=== PATIENT | female | born 1970 | race African-American/Black ===

== ENCOUNTER 2021-08-29 05:34 | Emergency (ER) | payer OTHER ==
[~2021-08-29] VITALS: Ht 170.2 cm; Wt 90.0 kg
[2021-08-29] MEDS ORDERED: ONDANSETRON HCL 4MG/2ML INJ IV STA (06:03)
[2021-08-29] MEDS ORDERED: KETOROLAC 30MG/ML VIAL IV STA (06:03)
[2021-08-29] MEDS ORDERED: SODIUM CHLORIDE 0.9% 1,000 ML IV ONE (06:15)
[2021-08-29 06:25] LABS: BASOPHILS % 1.4 % (0.0-2.0); EOSINOPHILS % 0.9 % (0.0-5.0); HEMATOCRIT. 43.9 % (36.0-48.0); LYMPHOCYTES % 18.9 % (20.0-50.0); MEAN CORPUSCULAR HEMOGLOBIN 23.3 pg (28.0-32.0); MEAN CORPUSCULAR VOLUME 73.2 fL (81.0-99.0); NEUTROPHILS % 71.8 % (40.0-76.0); PLATELET 328 x1000/uL (130-400); RED BLOOD CELL COUNT 5.99 mill/uL (4.2-5.4); RED CELL DISTRIBUTION WIDTH 15.2 % (11.6-14.6)
[2021-08-29 06:29] LABS: CHLORIDE 103 mEq/L (98-107)
[2021-08-29 06:45] LABS: HCG SCREEN NEGATIVE
[2021-08-29 06:45] LABS: CLARITY URINE CLOUDY (CLEAR); COLOR URINE DK YELLOW (YELLOW); KETONES URINE TRACE (NEGATIVE); LEUKOCYTE ESTERASE URINE TRACE (NEGATIVE); NITRITE URINE NEGATIVE (NEGATIVE); OCCULT BLOOD URINE NEGATIVE (NEGATIVE); PH URINE 5.5 (4.5-8.0); PROTEIN URINE 2+ (NEGATIVE); SPECIFIC GRAVITY URINE 1.026 (1.005-1.030)
[2021-08-29] MEDS ORDERED: IBUP-2029 MT (08:06)
[2021-08-29] MEDS ORDERED: AMOX-424 MT (08:06)
[2021-08-29] MEDS ORDERED: ONDA4TAB5 MT (08:06)
[2021-08-29 09:45] VITALS: BP 135/62
== END 2021-08-29 10:03 | disposition home or self-care (01) ==
LOC: ER 05:34
DX: N12 Tubulo-interstitial nephritis, not specified as acute or chronic (principal); I25.2 Old myocardial infarction; I10 Essential (primary) hypertension; Z95.5 Presence of coronary angioplasty implant and graft
CPT/HCPCS: 36415; 71045; 80053; 81003; 84484; 84703; 85025; 87086; 93005; 96361; 96374; 96375; 99285; J1885; J2405; J7030

== ENCOUNTER 2022-11-18 09:16 | Emergency (ER) | payer OTHER ==
[~2022-11-18] VITALS: Ht 167.6 cm; Wt 77.3 kg
[~2022-11-18 09:16] MED LIST: AMOX-424 MT; IBUP-2029 MT; ONDA4TAB5 MT
[2022-11-18] MEDS ORDERED: IBUPROFEN 600MG TABLET PO ONE (09:30)
[2022-11-18] MEDS ORDERED: IBUP-2029 MT (09:55)
[2022-11-18 10:10] VITALS: BP 146/65
== END 2022-11-18 10:14 | disposition home or self-care (01) ==
LOC: ER 09:16
DX: S80.02XA Contusion of left knee, initial encounter (principal); S93.402A Sprain of unspecified ligament of left ankle, initial encounter; W18.30XA Fall on same level, unspecified, initial encounter; Y93.89 Activity, other specified; Y92.89 Other specified places as the place of occurrence of the external cause; Y99.8 Other external cause status
CPT/HCPCS: 73560; 73610; 99284

== ENCOUNTER 2023-07-02 01:15 | Emergency (ER) | payer SELFPAY ==
[~2023-07-02] VITALS: Ht 170.2 cm; Wt 80.0 kg
[2023-07-02 01:27] VITALS: BP 162/92; PULSE 70; RESP 16; TEMP 98.6; O2SAT 100
[2023-07-02 03:39] LABS: BASOPHILS % 1.7 % (0.0-2.0); DIFFERENTIAL COMMENT 0; EOSINOPHILS % 1.5 % (0.0-5.0); HEMATOCRIT. 39.6 % (36.0-48.0); HEMOGLOBIN. 12.4 g/dL (12.0-16.0); LYMPHOCYTES % 35.9 % (20.0-50.0); MEAN CORPUSCULAR HEMOGLOBIN 23.3 pg (28.0-32.0); MEAN CORPUSCULAR HGB CONC 31.2 g/dL (31.0-37.0); MEAN CORPUSCULAR VOLUME 74.7 fL (81.0-99.0); MEAN PLATELET VOLUME 8.1 fl (7.4-10.4); MONOCYTES % 7.8 % (2.0-8.0); NEUTROPHILS % 53.1 % (40.0-76.0); PLATELET 267 x1000/uL (130-400); RED CELL DISTRIBUTION WIDTH 15.7 % (11.6-14.6); WHITE BLOOD COUNT 7.1 x1000/uL (4.5-11.0)
[2023-07-02 03:53] LABS: ALANINE AMINOTRANSFERASE 7 IU/L (10-49); ALBUMIN 4.4 g/dL (3.2-4.8); ASPARTATE AMINOTRANSFERASE 15 IU/L (<34); BILIRUBIN TOTAL 0.4 mg/dL (0.1-1.0); CALCIUM 9.7 mg/dL (8.7-10.4); CARBON DIOXIDE 29 mEq/L (21-32); CHLORIDE 108 mEq/L (98-107); GLUCOSE 89 mg/dL (70-105); PROTEIN TOTAL 7.2 g/dL (6.0-8.3); SODIUM 143 mEq/L (136-145); UREA NITROGEN BLOOD 14 mg/dL (9-23)
[2023-07-02 05:38] LABS: CLARITY URINE CLEAR (CLEAR); COLOR URINE YELLOW (YELLOW)
[2023-07-02 05:39] LABS: PH URINE 6.5 (4.5-8.0); SPECIFIC GRAVITY URINE 1.018 (1.005-1.030)
[2023-07-02 05:40] LABS: GLUCOSE URINE NEGATIVE (NEGATIVE); KETONES URINE NEGATIVE (NEGATIVE); LEUKOCYTE ESTERASE URINE NEGATIVE (NEGATIVE); NITRITE URINE NEGATIVE (NEGATIVE); OCCULT BLOOD URINE NEGATIVE (NEGATIVE); PROTEIN URINE NEGATIVE (NEGATIVE)
[2023-07-02] MEDS ORDERED: IBUP-2029 MT (07:01)
[2023-07-02] MEDS ORDERED: AMOX1TAB16 MT (07:01)
== END 2023-07-02 07:49 | disposition home or self-care (01) ==
LOC: ER 01:15
DX: N39.0 Urinary tract infection, site not specified (principal); I11.9 Hypertensive heart disease without heart failure; I25.2 Old myocardial infarction; Z98.890 Other specified postprocedural states
CPT/HCPCS: 36415; 76700; 80053; 81003; 85025; 99284

== ENCOUNTER 2024-03-14 15:11 | Inpatient (IN) | payer SELFPAY ==
[~2024-03-14] VITALS: Ht 170.2 cm; Wt 85.0 kg
[~2024-03-14 15:11] MED LIST changes: +AMOX1TAB16 MT
[2024-03-14 15:58] LABS: BASOPHILS % 1.8 % (0.0-2.0); DIFFERENTIAL COMMENT 0; EOSINOPHILS % 0.7 % (0.0-5.0); HEMATOCRIT. 39.7 % (36.0-48.0); HEMOGLOBIN. 12.5 g/dL (12.0-16.0); LYMPHOCYTES % 22.8 % (20.0-50.0); MEAN CORPUSCULAR HEMOGLOBIN 23.2 pg (28.0-32.0); MEAN CORPUSCULAR HGB CONC 31.4 g/dL (31.0-37.0); MONOCYTES % 8.4 % (2.0-8.0); NEUTROPHILS % 66.3 % (40.0-76.0); PLATELET 271 x1000/uL (130-400); RED BLOOD CELL COUNT 5.36 mill/uL (4.2-5.4); RED CELL DISTRIBUTION WIDTH 15.5 % (11.6-14.6); WHITE BLOOD COUNT 5.8 x1000/uL (4.5-11.0)
[2024-03-14 16:05] LABS: CHLORIDE 109 mEq/L (98-107); SODIUM 140 mEq/L (136-145)
[2024-03-14 16:06] LABS: CALCIUM 9.4 mg/dL (8.7-10.4); CARBON DIOXIDE 31 mEq/L (21-32)
[2024-03-14 16:11] LABS: CREATININE 1.2 mg/dL (0.6-1.0); GLUCOSE 83 mg/dL (70-105); UREA NITROGEN BLOOD 16 mg/dL (9-23)
[2024-03-14 16:13] LABS: TROPONIN I HIGH SENSITIVITY 5 ng/L (3.0-34)
[2024-03-14 17:54] LABS: CLARITY URINE CLEAR (CLEAR); COLOR URINE YELLOW (YELLOW); GLUCOSE URINE NEGATIVE (NEGATIVE); KETONES URINE NEGATIVE (NEGATIVE); LEUKOCYTE ESTERASE URINE TRACE (NEGATIVE); NITRITE URINE NEGATIVE (NEGATIVE); OCCULT BLOOD URINE NEGATIVE (NEGATIVE); PH URINE 5.5 (4.5-8.0); PROTEIN URINE TRACE (NEGATIVE); SPECIFIC GRAVITY URINE 1.025 (1.005-1.030)
[2024-03-14 18:11] LABS: BACTERIA URINE 1+
[2024-03-14 18:12] LABS: RBC URINE 0-2 /hpf (0-2); SQUAMOUS EPITHELIAL CELL URINE FEW /lpf (RARE/1+)
[2024-03-14] MEDS: ASPIRIN 81MG TABLET PO ONE (18:29)
[2024-03-14 20:14] LABS: TROPONIN I HIGH SENSITIVITY 8 ng/L (3.0-34)
[2024-03-14] MEDS ORDERED: IPRATROPIUM/ALBUTEROL 0.5-3(2.5)MG/3ML NEB HHN PRN (20:30)
[2024-03-14] MEDS ORDERED: DOCUSATE SODIUM 100MG CAPSULE PO PRN (20:30)
[2024-03-14] MEDS ORDERED: ONDANSETRON HCL 4MG/2ML INJ IV PRN (20:30)
[2024-03-14] MEDS ORDERED: ACETAMINOPHEN 650MG/20.3ML UDC GT PRN (20:30)
[2024-03-14] MEDS ORDERED: DIPHENHYDRAMINE 50MG/ML VIAL IV PRN (20:30)
[2024-03-14] MEDS: AMLODIPINE 5MG TABLET PO SCH (20:54)
[2024-03-14] MEDS: SODIUM CHLORIDE 0.45% 1,000 ML IV ONE (20:54)
[2024-03-14] MEDS: ENOXAPARIN 40MG/0.4ML SYR SUBCUT SCH (21:00)
[2024-03-14 21:21] LABS: D-DIMER 0.27 mg/L FEU (<0.50); INR 0.9; PROTHROMBIN TIME 10.3 sec (9.6-11.0)
[2024-03-14 21:24] LABS: IRON 53 ug/dL (50-170)
[2024-03-14 21:25] LABS: ALANINE AMINOTRANSFERASE 9 IU/L (10-49); ALBUMIN 4.3 g/dL (3.2-4.8); ASPARTATE AMINOTRANSFERASE 14 IU/L (<34); CHOLESTEROL 234 mg/dL (<200); TRIGLYCERIDE 103 mg/dL (0-150)
[2024-03-14 21:26] LABS: BILIRUBIN DIRECT 0.1 mg/dL (<=3.0); HDL CHOLESTEROL 51 mg/dL (>65); LDL CHOLESTEROL 187 mg/dL (5-100); TOTAL IRON BINDING CAPACITY 283 ug/dl (250-425)
[2024-03-14 21:27] LABS: BILIRUBIN TOTAL 0.4 mg/dL (0.1-1.0); ETHANOL BLOOD < 10 mg/dL (<10); PHOSPHORUS 2.5 mg/dL (2.5-4.9); PROTEIN TOTAL 7.3 g/dL (6.0-8.3)
[2024-03-14 21:28] LABS: T4 FREE 1.11 ng/dL (0.89-1.76); THYROID STIMULATING HORMONE 0.84 uIU/mL (0.55-4.78)
[2024-03-14] MEDS ORDERED: ALBUTEROL 6.7GM HFA INHALER ORI PRN (21:30)
[2024-03-14] MEDS ORDERED: ALBUTEROL (0.083%) 2.5MG/3ML NEB HHN PRN ×2 (21:45)
[2024-03-14] MEDS ORDERED: NITROGLYCERIN 0.4MG TABLET SL SL PRN (22:00)
[2024-03-14] MEDS: CLONIDINE 0.1MG TABLET PO PRN (22:02)
[2024-03-14] MEDS: NICOTINE 7MG PATCH TD SCH (22:20)
[2024-03-14 23:07] VITALS: BP 180/93; PULSE 55; RESP 19; TEMP 35.7508
[2024-03-14 23:51] LABS: TROPONIN I HIGH SENSITIVITY 9 ng/L (3.0-34)
[2024-03-14 23:53] LABS: CREATINE KINASE 70 IU/L (34-145)
[2024-03-15] VITALS: BP 138/62; PULSE 52; RESP 19; TEMP 36.05844; O2SAT 100
[2024-03-15 04:00] VITALS: BP 168/72; PULSE 56; RESP 18; TEMP 36.28068; O2SAT 97
[2024-03-15 06:51] LABS: CHLORIDE 108 mEq/L (98-107); POTASSIUM 3.7 mEq/L (3.5-5.1); SODIUM 140 mEq/L (136-145)
[2024-03-15 06:52] LABS: CARBON DIOXIDE 28 mEq/L (21-32)
[2024-03-15 06:53] LABS: CALCIUM 9.9 mg/dL (8.7-10.4)
[2024-03-15 06:57] LABS: CREATININE 0.9 mg/dL (0.6-1.0); GLUCOSE 86 mg/dL (70-105)
[2024-03-15 06:58] LABS: UREA NITROGEN BLOOD 12 mg/dL (9-23)
[2024-03-15 06:59] LABS: TROPONIN I HIGH SENSITIVITY 9 ng/L (3.0-34)
[2024-03-15 07:00] LABS: PHOSPHORUS 2.3 mg/dL (2.5-4.9)
[2024-03-15 07:01] LABS: BASOPHILS % 1.1 % (0.0-2.0); DIFFERENTIAL COMMENT 0; EOSINOPHILS % 2.8 % (0.0-5.0); HEMATOCRIT. 39.1 % (36.0-48.0); HEMOGLOBIN. 12.2 g/dL (12.0-16.0); LYMPHOCYTES % 40.9 % (20.0-50.0); MEAN CORPUSCULAR HEMOGLOBIN 23.2 pg (28.0-32.0); MEAN CORPUSCULAR HGB CONC 31.1 g/dL (31.0-37.0); MEAN CORPUSCULAR VOLUME 74.7 fL (81.0-99.0); MEAN PLATELET VOLUME 8.5 fl (7.4-10.4); MONOCYTES % 8.4 % (2.0-8.0); NEUTROPHILS % 46.8 % (40.0-76.0); PLATELET 237 x1000/uL (130-400); RED BLOOD CELL COUNT 5.24 mill/uL (4.2-5.4); RED CELL DISTRIBUTION WIDTH 15.6 % (11.6-14.6); WHITE BLOOD COUNT 5.9 x1000/uL (4.5-11.0)
[2024-03-15 07:02] LABS: CREATINE KINASE 73 IU/L (34-145)
[2024-03-15 08:00] VITALS: BP 175/86; PULSE 54; RESP 20; TEMP 36.28068; O2SAT 100
[2024-03-15] MEDS: LISINOPRIL 10MG TABLET PO SCH (08:18)
[2024-03-15] MEDS: ASPIRIN 81MG EC TABLET PO SCH (08:18)
[2024-03-15 12:00] VITALS: BP 128/65; PULSE 50; RESP 18; TEMP 36.33624; O2SAT 100
[2024-03-15] MEDS: ISOSORBIDE MONONITRATE 30MG TABLET SR 24HR PO SCH (12:06)
[2024-03-15] MEDS: ATENOLOL 50 MG TABLET PO SCH (14:30)
[2024-03-15] MEDS: POTASSIUM-SODIUM PHOSPHATE POWDER PACKET PO NR (15:23)
[2024-03-15 16:00] VITALS: BP 116/65; PULSE 55; RESP 18; TEMP 36.22512; O2SAT 100
[2024-03-15 20:00] VITALS: BP 132/75; PULSE 60; RESP 20; TEMP 36.16956; O2SAT 99
[2024-03-15] MEDS: ATORVASTATIN CALCIUM 40MG TABLET PO SCH (20:23)
[2024-03-15] MEDS ORDERED: ATORVASTATIN CALCIUM 40MG TABLET PO SCH (21:00)
[2024-03-16] VITALS (7 sets, daily range): BP systolic 121–181; BP diastolic 71–87; PULSE 52–92; RESP 18–20; TEMP 36.114–36.28068; O2SAT 96–100
[2024-03-16 06:09] LABS: BASOPHILS % 0.9 % (0.0-2.0); DIFFERENTIAL COMMENT 0; EOSINOPHILS % 2.6 % (0.0-5.0); HEMATOCRIT. 36.7 % (36.0-48.0); HEMOGLOBIN. 11.4 g/dL (12.0-16.0); LYMPHOCYTES % 29.8 % (20.0-50.0); MEAN CORPUSCULAR HEMOGLOBIN 23.1 pg (28.0-32.0); MEAN CORPUSCULAR HGB CONC 31.1 g/dL (31.0-37.0); MEAN CORPUSCULAR VOLUME 74.2 fL (81.0-99.0); MEAN PLATELET VOLUME 8.2 fl (7.4-10.4); MONOCYTES % 9.9 % (2.0-8.0); NEUTROPHILS % 56.8 % (40.0-76.0); PLATELET 244 x1000/uL (130-400); RED BLOOD CELL COUNT 4.95 mill/uL (4.2-5.4); RED CELL DISTRIBUTION WIDTH 15.2 % (11.6-14.6); WHITE BLOOD COUNT 6.2 x1000/uL (4.5-11.0)
[2024-03-16 06:42] LABS: CARBON DIOXIDE 28 mEq/L (21-32); CHLORIDE 108 mEq/L (98-107); POTASSIUM 3.7 mEq/L (3.5-5.1); SODIUM 140 mEq/L (136-145)
[2024-03-16 06:43] LABS: CALCIUM 9.3 mg/dL (8.7-10.4)
[2024-03-16 06:48] LABS: CREATININE 1.1 mg/dL (0.6-1.0); GLUCOSE 82 mg/dL (70-105); UREA NITROGEN BLOOD 19 mg/dL (9-23)
[2024-03-16 06:50] LABS: PHOSPHORUS 2.9 mg/dL (2.5-4.9)
[2024-03-16] MEDS ORDERED: REGADENOSON 0.4 MG/5 ML IV SCH (08:45)
[2024-03-17] VITALS: BP 154/85; PULSE 62; RESP 18; TEMP 36.16956; O2SAT 98
[2024-03-17 04:00] VITALS: BP 179/104; PULSE 77; RESP 19; TEMP 36.05844; O2SAT 99
[2024-03-17 08:00] VITALS: BP 100/58; PULSE 88; RESP 17; TEMP 36.44736; O2SAT 100
[2024-03-17 08:06] LABS: CHLORIDE 108 mEq/L (98-107); POTASSIUM 3.6 mEq/L (3.5-5.1); SODIUM 138 mEq/L (136-145)
[2024-03-17 08:07] LABS: CALCIUM 9.3 mg/dL (8.7-10.4); CARBON DIOXIDE 26 mEq/L (21-32)
[2024-03-17 08:11] LABS: HEMATOCRIT 37.2 % (36.0-48.0); HEMOGLOBIN 11.7 g/dL (12.0-16.0); MEAN CORPUSCULAR HEMOGLOBIN 23.3 pg (28.0-32.0); MEAN CORPUSCULAR HGB CONC 31.5 g/dL (31.0-37.0); MEAN CORPUSCULAR VOLUME 74.1 fL (81.0-99.0); PLATELET 252 x1000/uL (130-400); RED BLOOD CELL COUNT 5.01 mill/uL (4.2-5.4); RED CELL DISTRIBUTION WIDTH 15.5 % (11.6-14.6); WHITE BLOOD COUNT 5.9 x1000/uL (4.5-11.0)
[2024-03-17 08:12] LABS: CREATININE 0.9 mg/dL (0.6-1.0); GLUCOSE 92 mg/dL (70-105); UREA NITROGEN BLOOD 15 mg/dL (9-23)
[2024-03-17 12:00] VITALS: BP 130/63; PULSE 64; RESP 17; TEMP 36.28068; O2SAT 100
[2024-03-17 14:58] LABS: *AMPHETAMINES SCREEN URINE NEGATIVE (NEGATIVE); *BARBITURATES SCREEN URINE NEGATIVE (NEGATIVE); *BENZODIAZEPINES SCREEN URINE NEGATIVE (NEGATIVE); *COCAINE SCREEN URINE NEGATIVE (NEGATIVE); CANNABINOID URINE SCREEN PRESUMPTIVE POSITIVE (NEGATIVE); ECSTASY MDMA SCREEN URINE NEGATIVE (NEGATIVE); METHADONE URINE SCREEN NEGATIVE (NEGATIVE); OPIATES URINE SCREEN NEGATIVE (NEGATIVE); PHENCYCLIDINE URINE SCREEN NEGATIVE (NEGATIVE)
[2024-03-17 18:23] VITALS: BP 132/77; PULSE 75; RESP 18; TEMP 36.72516; O2SAT 100
[2024-03-17] MEDS: SODIUM CHLORIDE 0.45% 1,000 ML IV SCH (18:46)
[2024-03-17 20:00] VITALS: BP 155/72; PULSE 67; RESP 18; TEMP 36.50292; O2SAT 100
[2024-03-18] VITALS: BP 155/93; PULSE 81; RESP 19; TEMP 36.28068; O2SAT 99
[2024-03-18 04:00] VITALS: BP 133/87; PULSE 80; RESP 18; TEMP 36.50292; O2SAT 100
[2024-03-18 08:00] VITALS: BP 151/94; PULSE 63; RESP 18; TEMP 36.3918; O2SAT 99
[2024-03-18 12:00] VITALS: BP 114/52; PULSE 70; RESP 16; TEMP 36.55848; O2SAT 99
[2024-03-18 16:00] VITALS: BP 121/71; PULSE 62; RESP 18; TEMP 36.50292; O2SAT 96
[2024-03-18 20:00] VITALS: BP 132/72; PULSE 84; RESP 19; TEMP 36.89184; O2SAT 99
[2024-03-19] VITALS: BP 132/72; PULSE 84; RESP 19; TEMP 36.55848; O2SAT 99
[2024-03-19 04:00] VITALS: BP_SYST 143; BP_SYST 169; BP_DIAS 80; BP_DIAS 92; PULSE 71; PULSE 73; RESP 18; TEMP 36.78072; TEMP 36.89184; O2SAT 98; O2SAT 99
[2024-03-19 07:45] LABS: BASOPHILS % 0.9 % (0.0-2.0); DIFFERENTIAL COMMENT 0; EOSINOPHILS % 1.7 % (0.0-5.0); HEMATOCRIT. 40.2 % (36.0-48.0); HEMOGLOBIN. 12.4 g/dL (12.0-16.0); INR 0.9; LYMPHOCYTES % 32.8 % (20.0-50.0); MEAN CORPUSCULAR HGB CONC 30.8 g/dL (31.0-37.0); MEAN CORPUSCULAR VOLUME 74.8 fL (81.0-99.0); MEAN PLATELET VOLUME 8.5 fl (7.4-10.4); MONOCYTES % 10.5 % (2.0-8.0); NEUTROPHILS % 54.1 % (40.0-76.0); PLATELET 275 x1000/uL (130-400); PROTHROMBIN TIME 10.3 sec (9.6-11.0); RED BLOOD CELL COUNT 5.38 mill/uL (4.2-5.4); RED CELL DISTRIBUTION WIDTH 15.7 % (11.6-14.6); WHITE BLOOD COUNT 5.6 x1000/uL (4.5-11.0)
[2024-03-19 07:47] LABS: CHLORIDE 107 mEq/L (98-107); POTASSIUM 3.8 mEq/L (3.5-5.1); SODIUM 139 mEq/L (136-145)
[2024-03-19 07:48] LABS: CALCIUM 9.6 mg/dL (8.7-10.4); CARBON DIOXIDE 27 mEq/L (21-32)
[2024-03-19 07:53] LABS: GLUCOSE 76 mg/dL (70-105)
[2024-03-19 07:54] LABS: UREA NITROGEN BLOOD 17 mg/dL (9-23)
[2024-03-19 07:56] LABS: PHOSPHORUS 2.4 mg/dL (2.5-4.9)
[2024-03-19 08:00] VITALS: BP 164/95; PULSE 76; RESP 15; TEMP 36.114; O2SAT 100
[2024-03-19] MEDS ORDERED: LIDOCAINE HCL 1% 10 MG/ML 10ML VIAL ONE (11:46)
[2024-03-19] MEDS ORDERED: DIPHENHYDRAMINE 50MG/ML VIAL ONE (11:46)
[2024-03-19] MEDS ORDERED: HEPARIN 1000 UNITS/ML 10ML ONE (11:46)
[2024-03-19] MEDS ORDERED: VERAPAMIL HCL 2.5 MG/1 ML 2ML VIAL IV ONE (11:46)
[2024-03-19] MEDS ORDERED: IODIXANOL 320MG/ML 100 ML BOTTLE IV ONE ×2 (11:46→13:36)
[2024-03-19 12:00] VITALS: BP 150/91; PULSE 82; RESP 16; TEMP 36.3918; O2SAT 96
[2024-03-19] MEDS ORDERED: FENTANYL CITRATE/PF 50MCG/ML 2ML VIAL ONE (12:32)
[2024-03-19] MEDS ORDERED: MIDAZOLAM HCL 2 MG/2 ML VIAL ONE (12:32)
[2024-03-19] MEDS ORDERED: ATROPINE SULFATE 1MG/10ML SYR IV PRN (14:30)
[2024-03-19] MEDS ORDERED: ACETAMINOPHEN 325MG TABLET PO PRN (14:30)
[2024-03-19] MEDS: SODIUM CHLORIDE 0.45% 250 ML IV ONE (14:30)
[2024-03-19 16:00] VITALS: BP 159/89; PULSE 60; RESP 13; TEMP 36.78072; O2SAT 100
[2024-03-19 20:14] LABS: PHOSPHORUS 2.6 mg/dL (2.5-4.9)
[2024-03-19 20:37] VITALS: BP 150/88; PULSE 64; RESP 18; TEMP 36.61404; O2SAT 100
[2024-03-19] MEDS: SODIUM PHOSPHATE 15 MMOL in DEXT 5% WATER 245 ML IV NR (21:44)
[2024-03-20 00:22] VITALS: BP 133/77; PULSE 66; RESP 18; TEMP 36.55848; O2SAT 100
[2024-03-20 04:00] VITALS: BP 148/81; PULSE 63; RESP 18; TEMP 36.89184; O2SAT 99
[2024-03-20 06:36] LABS: BASOPHILS % 1.2 % (0.0-2.0); DIFFERENTIAL COMMENT 0; EOSINOPHILS % 2.3 % (0.0-5.0); HEMATOCRIT. 39.3 % (36.0-48.0); HEMOGLOBIN. 12.1 g/dL (12.0-16.0); LYMPHOCYTES % 31.8 % (20.0-50.0); MEAN CORPUSCULAR HGB CONC 30.9 g/dL (31.0-37.0); MEAN CORPUSCULAR VOLUME 74.3 fL (81.0-99.0); MEAN PLATELET VOLUME 8.1 fl (7.4-10.4); MONOCYTES % 11.5 % (2.0-8.0); NEUTROPHILS % 53.2 % (40.0-76.0); PLATELET 245 x1000/uL (130-400); RED BLOOD CELL COUNT 5.28 mill/uL (4.2-5.4); RED CELL DISTRIBUTION WIDTH 15.6 % (11.6-14.6); WHITE BLOOD COUNT 5.7 x1000/uL (4.5-11.0)
[2024-03-20 06:52] LABS: CALCIUM 9.1 mg/dL (8.7-10.4); CARBON DIOXIDE 22 mEq/L (21-32); CHLORIDE 108 mEq/L (98-107); POTASSIUM 3.8 mEq/L (3.5-5.1); SODIUM 136 mEq/L (136-145)
[2024-03-20 06:58] LABS: CREATININE 0.9 mg/dL (0.6-1.0); GLUCOSE 77 mg/dL (70-105)
[2024-03-20 08:00] VITALS: BP 137/78; PULSE 63; RESP 19; TEMP 36.89184; O2SAT 100
[2024-03-20 08:43] LABS: UREA NITROGEN BLOOD 13 mg/dL (9-23)
[2024-03-20] MEDS: MAGNESIUM 2 G PREMIX 50 ML IV NR ×2 (08:45→15:36)
[2024-03-20 12:00] VITALS: BP 139/94; PULSE 81; RESP 16; TEMP 36.78072; O2SAT 99
[2024-03-20] MEDS: CLOPIDOGREL 75MG TABLET PO NR (13:59)
[2024-03-20] MEDS: ACETAMINOPHEN 325MG TABLET PO PRN (14:00)
[2024-03-20 16:00] VITALS: BP 144/83; PULSE 68; RESP 11; TEMP 36.61404; O2SAT 99
[2024-03-20] MEDS: SODIUM CHLORIDE 0.9% 1,000 ML IV SCH (18:48)
[2024-03-20 20:00] VITALS: BP 135/77; PULSE 70; RESP 14; TEMP 37.00296; O2SAT 99
[2024-03-21] VITALS: BP 141/73; PULSE 72; RESP 18; TEMP 36.6696; O2SAT 98
[2024-03-21 04:00] VITALS: BP 132/73; PULSE 72; RESP 18; TEMP 36.55848; O2SAT 98
[2024-03-21 06:48] LABS: CALCIUM 9.5 mg/dL (8.7-10.4); CARBON DIOXIDE 23 mEq/L (21-32); CHLORIDE 108 mEq/L (98-107); POTASSIUM 3.8 mEq/L (3.5-5.1); SODIUM 137 mEq/L (136-145)
[2024-03-21 06:53] LABS: GLUCOSE 109 mg/dL (70-105)
[2024-03-21 06:54] LABS: INR 0.9; PROTHROMBIN TIME 10.3 sec (9.6-11.0); UREA NITROGEN BLOOD 17 mg/dL (9-23)
[2024-03-21 06:56] LABS: PHOSPHORUS 2.6 mg/dL (2.5-4.9)
[2024-03-21 07:19] LABS: BASOPHILS % 0.9 % (0.0-2.0); DIFFERENTIAL COMMENT 0; EOSINOPHILS % 2.4 % (0.0-5.0); HEMATOCRIT. 37.8 % (36.0-48.0); HEMOGLOBIN. 11.7 g/dL (12.0-16.0); LYMPHOCYTES % 19.7 % (20.0-50.0); MEAN CORPUSCULAR VOLUME 74.4 fL (81.0-99.0); MEAN PLATELET VOLUME 8.2 fl (7.4-10.4); MONOCYTES % 13.7 % (2.0-8.0); NEUTROPHILS % 63.3 % (40.0-76.0); PLATELET 267 x1000/uL (130-400); RED BLOOD CELL COUNT 5.08 mill/uL (4.2-5.4); RED CELL DISTRIBUTION WIDTH 15.4 % (11.6-14.6); WHITE BLOOD COUNT 5.2 x1000/uL (4.5-11.0)
[2024-03-21 08:00] VITALS: BP 138/90; PULSE 86; RESP 17; TEMP 36.78072; O2SAT 99
[2024-03-21] MEDS: CLOPIDOGREL 75MG TABLET PO SCH (08:41)
[2024-03-21] MEDS ORDERED: LIDOCAINE HCL 1% 20ML VIAL ONE (12:55)
[2024-03-21] MEDS ORDERED: IODIXANOL 320MG/ML 100 ML BOTTLE IV ONE ×2 (12:55→14:17)
[2024-03-21] MEDS ORDERED: VERAPAMIL HCL 2.5 MG/1 ML 2ML VIAL IV ONE (12:55)
[2024-03-21] MEDS ORDERED: DIPHENHYDRAMINE 50MG/ML VIAL ONE (13:15)
[2024-03-21] MEDS ORDERED: FENTANYL CITRATE/PF 50MCG/ML 2ML VIAL ONE (13:15)
[2024-03-21] MEDS ORDERED: MIDAZOLAM HCL 2 MG/2 ML VIAL ONE (13:16)
[2024-03-21] MEDS ORDERED: HYDRALAZINE 20MG/ML VIAL ONE (14:21)
[2024-03-21] MEDS: SODIUM CHLORIDE 0.45% 500 ML IV SCH (15:00)
[2024-03-21] MEDS ORDERED: ATROPINE SULFATE 1MG/10ML SYR IV PRN (15:15)
[2024-03-21] MEDS ORDERED: ACETAMINOPHEN 325MG TABLET PO PRN (15:15)
[2024-03-21] MEDS ORDERED: CLOPIDOGREL 75MG TABLET ONE (15:49)
[2024-03-21 16:00] VITALS: BP 143/79; PULSE 87; RESP 13; TEMP 36.72516; O2SAT 99
[2024-03-21 20:00] VITALS: BP 145/82; PULSE 93; RESP 18; TEMP 36.78072; O2SAT 100
[2024-03-22] VITALS: BP 150/115; PULSE 92; RESP 18; TEMP 36.61404; O2SAT 100
[2024-03-22 04:00] VITALS: BP 156/78; PULSE 77; RESP 16; TEMP 36.9474; O2SAT 100
[2024-03-22 07:44] LABS: BASOPHILS % 0.8 % (0.0-2.0); DIFFERENTIAL COMMENT 0; HEMATOCRIT. 39.6 % (36.0-48.0); HEMOGLOBIN. 12.5 g/dL (12.0-16.0); LYMPHOCYTES % 31.1 % (20.0-50.0); MEAN CORPUSCULAR HEMOGLOBIN 23.1 pg (28.0-32.0); MEAN CORPUSCULAR HGB CONC 31.5 g/dL (31.0-37.0); MEAN CORPUSCULAR VOLUME 73.5 fL (81.0-99.0); MEAN PLATELET VOLUME 8.1 fl (7.4-10.4); MONOCYTES % 13.6 % (2.0-8.0); NEUTROPHILS % 53.5 % (40.0-76.0); PLATELET 268 x1000/uL (130-400); RED BLOOD CELL COUNT 5.39 mill/uL (4.2-5.4); RED CELL DISTRIBUTION WIDTH 15.2 % (11.6-14.6); WHITE BLOOD COUNT 5.2 x1000/uL (4.5-11.0)
[2024-03-22 08:00] VITALS: BP 162/91; PULSE 65; RESP 18; TEMP 36.78072; O2SAT 98
[2024-03-22 08:00] LABS: CARBON DIOXIDE 24 mEq/L (21-32); CHLORIDE 108 mEq/L (98-107); POTASSIUM 3.7 mEq/L (3.5-5.1); SODIUM 139 mEq/L (136-145)
[2024-03-22 08:01] LABS: CALCIUM 9.7 mg/dL (8.7-10.4)
[2024-03-22 08:03] LABS: CREATININE 0.8 mg/dL (0.6-1.0)
[2024-03-22 08:05] LABS: GLUCOSE 82 mg/dL (70-105)
[2024-03-22 08:06] LABS: UREA NITROGEN BLOOD 8 mg/dL (9-23)
[2024-03-22 08:08] LABS: PHOSPHORUS 2.3 mg/dL (2.5-4.9)
[2024-03-22] MEDS ORDERED: AMLO5TAB88 PO (10:42)
[2024-03-22] MEDS ORDERED: ISOS30TA91 PO (10:42)
[2024-03-22] MEDS ORDERED: LIP40 PO (10:42)
[2024-03-22] MEDS ORDERED: NITR0.4T49 SL (10:42)
[2024-03-22] MEDS ORDERED: NICO-786 TD (10:42)
[2024-03-22] MEDS ORDERED: CLOP-31 PO (10:42)
[2024-03-22] MEDS ORDERED: LISI10TA26 PO (10:42)
[2024-03-22] MEDS ORDERED: ASPI-1406 PO (10:42)
[2024-03-22] MEDS: POTASSIUM PHOSPHATE 15 MMOL in DEXT 5% WATER 245 ML IV SCH (11:14)
[2024-03-22 12:00] VITALS: BP 136/89; PULSE 112; RESP 21; TEMP 37.16964; O2SAT 98
[2024-03-22 16:12] VITALS: BP 136/89; PULSE 98; TEMP 98.9; O2SAT 98
== END 2024-03-22 17:56 | disposition home or self-care (01) | DRG 175 ==
LOC: ER 15:11 → 7EST 19:09 → EDBEDREQ 19:35 → 3WST 03-19 16:00
PROVIDERS: ADMIT Preventive Medicine Clinical Informatics; ATTEND Preventive Medicine Clinical Informatics
PROC: 027035Z Dilation of Coronary Artery, One Artery with Two Drug-eluting Intraluminal Devices, Percutaneous Approach (ICD-10-PCS; principal; 2024-03-21)
PROC: 4A023N7 Measurement of Cardiac Sampling and Pressure, Left Heart, Percutaneous Approach (ICD-10-PCS; 2024-03-21)
PROC: B211YZZ Fluoroscopy of Multiple Coronary Arteries using Other Contrast (ICD-10-PCS; 2024-03-21)
PROC: 02703ZZ Dilation of Coronary Artery, One Artery, Percutaneous Approach (ICD-10-PCS; 2024-03-21)
DX: I25.110 Atherosclerotic heart disease of native coronary artery with unstable angina pectoris (principal); N17.0 Acute kidney failure with tubular necrosis; E83.39 Other disorders of phosphorus metabolism; F17.210 Nicotine dependence, cigarettes, uncomplicated; I10 Essential (primary) hypertension; J42 Unspecified chronic bronchitis; N39.0 Urinary tract infection, site not specified; T46.5X6A Underdosing of other antihypertensive drugs, initial encounter; Z20.822 Contact with and (suspected) exposure to COVID-19; E78.00 Pure hypercholesterolemia, unspecified; Z95.5 Presence of coronary angioplasty implant and graft; Z79.82 Long term (current) use of aspirin; Z83.3 Family history of diabetes mellitus; Z91.148 Patient's other noncompliance with medication regimen for other reason; Z82.49 Family history of ischemic heart disease and other diseases of the circulatory system; Z79.899 Other long term (current) drug therapy; I25.2 Old myocardial infarction
CPT/HCPCS: 36415; 71045; 80048; 80061; 80076; 80305; 80320; 81003; 82550; 82728; 83036; 83540; 83550; 83735; 83880; 84100; 84439; 84443; 84484; 85025; 85027; 85347; 85379; 87426; 93005; 93306; 93458; 93571; 99285; C1713; C1725; C1769; C1874; C1887; C1893; J0360; J1200; J1644; J1650; J2250; J3010; J3475; J3490; J7030; J7060; Q9967; G0480

== ENCOUNTER 2024-08-25 12:30 | Emergency (ER) | payer BC ==
[~2024-08-25] VITALS: Ht 170.2 cm; Wt 79.4 kg
[~2024-08-25 12:30] MED LIST changes: +AMLO5TAB88 PO; -AMOX-424 MT; -AMOX1TAB16 MT; +ASPI-1406 PO; +CLOP-31 PO; -IBUP-2029 MT; +ISOS30TA91 PO; +LIP40 PO; +LISI10TA26 PO; +NICO-786 TD; +NITR0.4T49 SL; -ONDA4TAB5 MT
[2024-08-25 12:41] VITALS: BP 155/96; RESP 16; O2SAT 100
[2024-08-25 12:42] VITALS: PULSE 112; O2SAT 100
[2024-08-25] MEDS ORDERED: ACETAMINOPHEN 325MG TABLET PO ONE (14:00)
[2024-08-25] MEDS ORDERED: TRAM50TA3 MT (15:42)
[2024-08-25 15:47] VITALS: TEMP 98.9
[2024-08-25] MEDS: ACETAMINOPHEN 325MG TABLET PO NR (15:47)
== END 2024-08-25 15:50 | disposition home or self-care (01) ==
LOC: ER 12:30
DX: R51.9 Headache, unspecified (principal); M54.2 Cervicalgia; F12.90 Cannabis use, unspecified, uncomplicated; I11.9 Hypertensive heart disease without heart failure; I51.9 Heart disease, unspecified; Z98.890 Other specified postprocedural states; Z79.02 Long term (current) use of antithrombotics/antiplatelets; Z79.82 Long term (current) use of aspirin; Z79.899 Other long term (current) drug therapy; Y92.410 Unspecified street and highway as the place of occurrence of the external cause; V89.2XXA Person injured in unspecified motor-vehicle accident, traffic, initial encounter; Y93.89 Activity, other specified; Y92.89 Other specified places as the place of occurrence of the external cause; Y99.8 Other external cause status
CPT/HCPCS: 99284